=== PATIENT | female | born 1935 | race Caucasian/White ===

== ENCOUNTER 2017-07-28 08:08 | Emergency (ER) | payer MEDICARE, OTHER ==
--- NOTE | 2017-07-28 08:31 | PHYS DOC ---
Past History Past Medical History: Hypertension Past Surgical History: Hip Replacement Alcohol Use: None Drug Use: None Adult General Chief Complaint Chief Complaint: HIP PAIN HPI HPI Patient is a 82 year old female who presents with right hip pain. The patient reports onset of pain 3 days ago, increasingly painful with weightbearing & ambulation. She denies any trauma or falls. Denies fevers/chills, erythema, warmth, swelling. Denies numbness or weakness or edema. States blood pressure has been elevated due to pain. She has been taking medications as prescribed, denies headache, chest pain, shortness of breath, extremity numbness/weakness. History of right total hip arthroplasty 7 years ago. She lives at home. She doesn't take narcotic pain medications because they make her "crazy," even after her hip surgery she states she didn't take any pain medications. Review of Systems Review of Systems Constitutional: Denies fever or chills Eyes: Denies change in visual acuity HENT: Denies nasal congestion or sore throat Respiratory: Denies cough or shortness of breath Cardiovascular: Denies chest pain or edema GI: Denies abdominal pain, nausea, vomiting, or diarrhea : Denies dysuria or hematuria Musculoskeletal: Reports hip pain Integument: Denies rash or skin lesions Neurologic: Denies headache, focal weakness or sensory changes All other systems were reviewed and found to be within normal limits, except as documented in this note. Current Medications Current Medications Current Medications Medications (Trade) Dose Ordered Sig/Janny Start Time Stop Time Status Last Admin Dose Admin Acetaminophen (Tylenol) 1,000 mg 1X ONCE 07/28/17 08:45 07/28/17 08:46 Allergies Allergies Allergies Coded Allergies Type Severity Reaction Last Updated Verified Opioids-Meperidine and Related Allergy Intermediate 07/27/16 Yes morphine Allergy Intermediate 07/27/16 Yes Physical Exam Physical Exam Constitutional: Well developed, well nourished, no acute distress, non-toxic appearance. HENT: Normocephalic, atraumatic, bilateral external ears normal, oropharynx moist, nose normal. Eyes: PERRLA, EOMI, conjunctiva normal, no discharge. Neck: supple, no stridor. Cardiovascular: RRR, no murmurs, no edema. Lungs & Thorax: LCTAB, no wheezing, no respiratory distress. Abdomen: soft, nontender, nondistended. Skin: Warm, dry, no erythema, no rash. Back: No tenderness. Extremities: right hip no swelling or deformity, tenderness posteriorly & anteriorly over proximal femur, able to flex/extend at hip & internally/ externally rotate, all with minimal pain, no knee or ankle tenderness, dp/pt 2+ , sensation intact to foot. Neurologic: Alert and oriented X 3, no focal deficits noted. Psychologic: Affect normal, judgement normal, mood normal. EKG EKG [] Radiology/Procedures Radiology/Procedures PROCEDURE: HIP RIGHT 2V WITH PELVIS Pelvis with right hip, 3 views, 07/28/2017: History: Hip pain A right total hip prosthesis is in place. There is no radiographic evidence of loosening or infection. No fracture or dislocation is evident. There are mild degenerative changes at the left hip joint and at the symphysis pubis, with moderate degenerative change in the lower lumbar spine. IMPRESSION: 1. A right hip prosthesis is in place. 2. No acute bony abnormality is detected. DICTATED AND SIGNED BY: DELMI WOLFF MD DATE: 07/28/17 0837 PROCEDURE: CT PELVIS WO CONTRAST CT of the pelvis without contrast, 07/28/2017: History: Hip pain Noncontrast scans were obtained as requested, with multiplanar reconstructions produced. A right total hip prosthesis is in place with associated artifacts degrading image quality in that region. The inferior aspect of the prosthesis was not completely included on this study. No fracture or destructive bony lesion is seen. There is moderate degenerative change at the left hip joint with joint space narrowing and marginal spurring. There are moderate degenerative changes in the lower lumbar spine with a mild anterolisthesis at L4-5 and a minimal anterolisthesis at L3-4 due to facet joint arthropathy. The periarticular soft tissues are unremarkable. Minimal sigmoid diverticulosis is noted. There are scattered pelvic calcifications which appear to be vascular. IMPRESSION: 1. Chronic findings as described above. 2. No acute pelvic abnormality is detected. PQRS Compliance Statement: One or more of the following individualized dose reduction techniques were utilized for this examination: 1. Automated exposure control 2. Adjustment of the mA and/or kV according to patient size 3. Use of iterative reconstruction technique DICTATED AND SIGNED BY: DELMI WOLFF MD DATE: 07/28/17 0944 [] Course & Med Decision Making Course & Med Decision Making Pertinent Labs and Imaging studies reviewed. (See chart for details) The patient presents with atraumatic hip pain. Neurovascularly intact without obvious deformity. She doesn't like taking any pain medication but is obviously in pain. Gave tylenol here. X-ray & CT negative for acute abnormality. She is not able to stand or walk independently, did not feel safe going home. Discussed with Dr. Laws here at [facility] & she recommends transfer to [facility] for orthopedic surgery/pain management/rehab. The patient agrees with plan of care. Discussed with Dr. Miller who agrees to accept transfer to [facility]. Will apply lidoderm patch now for pain control. The patient is to be transferred by EMS, & is in stable condition. [] Dragon Disclaimer Dragon Disclaimer This electronic medical record was generated, in whole or in part, using a voice recognition dictation system. Departure Departure: Impression: Primary Impression: Hip pain Disposition: 05 XFER OTHER Condition: STABLE Referrals: BETHEL MCCOLLUM MD (PCP) SINA SHARMA MD Jul 28, 2017 08:31
--- NOTE | 2017-07-28 08:41 | RAD ---
Pelvis with right hip, 3 views, 07/28/2017: History: Hip pain A right total hip prosthesis is in place. There is no radiographic evidence of loosening or infection. No fracture or dislocation is evident. There are mild degenerative changes at the left hip joint and at the symphysis pubis, with moderate degenerative change in the lower lumbar spine. IMPRESSION: 1. A right hip prosthesis is in place. 2. No acute bony abnormality is detected.
[2017-07-28] MEDS ORDERED: ACETAMINOPHEN 500 MG TABLET PO ONE (08:45)
--- NOTE | 2017-07-28 09:54 | RAD ---
CT of the pelvis without contrast, 07/28/2017: History: Hip pain Noncontrast scans were obtained as requested, with multiplanar reconstructions produced. A right total hip prosthesis is in place with associated artifacts degrading image quality in that region. The inferior aspect of the prosthesis was not completely included on this study. No fracture or destructive bony lesion is seen. There is moderate degenerative change at the left hip joint with joint space narrowing and marginal spurring. There are moderate degenerative changes in the lower lumbar spine with a mild anterolisthesis at L4-5 and a minimal anterolisthesis at L3-4 due to facet joint arthropathy. The periarticular soft tissues are unremarkable. Minimal sigmoid diverticulosis is noted. There are scattered pelvic calcifications which appear to be vascular. IMPRESSION: 1. Chronic findings as described above. 2. No acute pelvic abnormality is detected. PQRS Compliance Statement: One or more of the following individualized dose reduction techniques were utilized for this examination: 1. Automated exposure control 2. Adjustment of the mA and/or kV according to patient size 3. Use of iterative reconstruction technique
[2017-07-28] MEDS ORDERED: LIDOCAINE (700MG/PATCH) PATCH. TD ONE (10:45)
[2017-07-28 12:13] VITALS: BP 168/71
== END 2017-07-28 13:00 | disposition short-term general hospital (02) ==
LOC: ER 08:08
DX: M25.551 Pain in right hip (principal); I10 Essential (primary) hypertension; Z88.5 Allergy status to narcotic agent; Z96.641 Presence of right artificial hip joint
CPT/HCPCS: 72192; 73502; 99285

== ENCOUNTER 2019-12-29 03:25 | Observation (INO) | payer MEDICARE, OTHER ==
[~2019-12-29] VITALS: Ht 160 cm; Wt 71.5 kg
--- NOTE | 2019-12-29 04:00 | PHYS DOC ---
Past History Past Medical History: Hypertension Past Surgical History: Hip Replacement Alcohol Use: None Drug Use: None General Adult EDM: Chief Complaint: DIZZY/LIGHT HEADED HPI: HPI: 84-year-old female presents via EMS with dizziness and shortness of breath. The patient started feeling dizzy around 10 PM. She went to bed. She woke up around 130 to go to the restroom and was more dizzy. She used her walker to go to the restroom and back to her bed. After she laid down, she continued to feel dizzy and just could not stand it anymore. She was also having some chills and felt like she was a bit short of breath. She decided to call 911 and come to the hospital. The patient was feeling well prior to this all day. She does not use oxygen at home. Her medical history is significant for joint replacement and hypertension. She denies fevers but did have chills today. Review of Systems: Review of Systems: Constitutional: Chills Eyes: Denies change in visual acuity HENT: Denies nasal congestion or sore throat Respiratory: shortness of breath Cardiovascular: Denies chest pain or edema GI: Denies abdominal pain, nausea, vomiting, bloody stools or diarrhea : Denies dysuria Musculoskeletal: Denies back pain or joint pain Integument: Denies rash Neurologic: Dizziness. Denies headache, focal weakness or sensory changes Endocrine: Denies polyuria or polydipsia Lymphatic: Denies swollen glands Psychiatric: Denies depression or anxiety Heart Score: Risk Factors: Risk Factors: DM, Current or recent (<one month) smoker, HTN, HLP, family history of CAD, obesity. Risk Scores: Score 0 - 3: 2.5% MACE over next 6 weeks - Discharge Home Score 4 - 6: 20.3% MACE over next 6 weeks - Admit for Clinical Observation Score 7 - 10: 72.7% MACE over next 6 weeks - Early Invasive Strategies Allergies: Allergies: Allergies Coded Allergies Type Severity Reaction Last Updated Verified Opioids-Meperidine and Related Allergy Intermediate 07/27/16 Yes morphine Allergy Intermediate 07/27/16 Yes Physical Exam: PE: Constitutional: Well developed, well nourished, no acute distress, non-toxic appearance. [] HENT: Normocephalic, atraumatic, bilateral external ears normal, oropharynx moist, no oral exudates, nose normal. [] Eyes: PERRLA, EOMI, conjunctiva normal, no discharge. [] Neck: Normal range of motion, no tenderness, supple, no stridor. [] Cardiovascular: Heart rate regular rhythm, no murmur [] Lungs & Thorax: Bilateral breath sounds clear to auscultation [] Abdomen: Bowel sounds normal, soft, no tenderness, no masses, no pulsatile masses. [] Skin: Warm, dry, no erythema, no rash. [] Back: No tenderness, no CVA tenderness. [] Extremities: No tenderness, no cyanosis, no clubbing, ROM intact, no edema. [] Neurologic: Alert and oriented X 3, normal motor function, normal sensory function, no focal deficits noted. [] Psychologic: Affect normal, judgement normal, mood normal. [] EKG: EKG: Sinus rhythm, rate 73, leftward axis, no ST elevations or depressions. [] Radiology/Procedures: Radiology/Procedures: [] Impressions: EXAM: CHEST AP ONLY INDICATION: Reason: SOB / Spl. Instructions: / History: . TECHNIQUE: Single view COMPARISON: 07/27/2016 chest x-ray FINDINGS: The heart size is normal. The great vessels appear unremarkable. There is no hilar or mediastinal mass. The lungs are clear. There is no pleural effusion or pneumothorax. Bilateral glenohumeral degenerative changes are present. No acute or aggressive osseous lesion is seen. IMPRESSION: No active cardiopulmonary disease. Electronically signed by: Latonia Negro MD (12/29/2019 4:25 AM) [facility] [place]CTATED AND SIGNED BY: LATONIA NEGRO MD DATE: 12/29/19 0425 CC: DELMY BAGLEY DO; BETHEL MCCOLLUM MD ~ Course & Med Decision Making: Course & Med Decision Making Pertinent Labs and Imaging studies reviewed. (See chart for details) The patient's labs are unremarkable. Her urinalysis is negative for infection. I have given her a liter normal saline, 25 mg of Benadryl, 25 mg of meclizine, and 4 mg of Zofran for dizziness. The patient was able to ambulate to the restroom, but states that she still feels very dizzy and unsteady. I do not believe she can safely go home. I have discussed the patient with Dr. Francis and he has accepted her for admission. [] Dragon Disclaimer: Dragon Disclaimer: This electronic medical record was generated, in whole or in part, using a voice recognition dictation system. Departure Departure: Impression: Primary Impression: Dizziness Disposition: ADMITTED INPATIENT Admitting Physician: Saira Francis Condition: STABLE Referrals: BETHEL MCCOLLUM MD (PCP) Justification of Admission: Justification of Admission: Justification of Admission Dx: Comment: Comments: dizziness DELMY BAGLEY DO Dec 29, 2019 04:00
[2019-12-29 04:24] LABS: BASO # 0.1 x10^3/uL (0.0-0.2); BASO % 1 % (0-3); EOS # 0.2 x10^3/uL (0.0-0.7); EOS % 4 % (0-3); HEMATOCRIT 38.7 % (36.0-47.0); HEMOGLOBIN 12.9 g/dL (12.0-15.5); LYMPH # 1.4 x10^3/uL (1.0-4.8); LYMPH % 22 % (24-48); MEAN CORPUSCULAR HEMOGLOBIN 33 pg (25-35); MEAN CORPUSCULAR HGB CONC 33 g/dL (31-37); MEAN CORPUSCULAR VOLUME 100 fL (79-100); MONO # 0.9 x10^3/uL (0.0-1.1); MONO % 14 % (0-9); NEUT # 3.8 x10^3uL (1.8-7.7); NEUT % 60 % (31-73); PLATELET COUNT 201 x10^3/uL (140-400); RED BLOOD COUNT 3.88 x10^6/uL (3.50-5.40); RED CELL DISTRIBUTION WIDTH 13.3 % (11.5-14.5); WHITE BLOOD COUNT 6.4 x10^3/uL (4.0-11.0)
--- NOTE | 2019-12-29 04:28 | RAD ---
EXAM: CHEST AP ONLY INDICATION: Reason: SOB / Spl. Instructions: / History: . TECHNIQUE: Single view COMPARISON: 07/27/2016 chest x-ray FINDINGS: The heart size is normal. The great vessels appear unremarkable. There is no hilar or mediastinal mass. The lungs are clear. There is no pleural effusion or pneumothorax. Bilateral glenohumeral degenerative changes are present. No acute or aggressive osseous lesion is seen. IMPRESSION: No active cardiopulmonary disease. Electronically signed by: Norma Negro MD (12/29/2019 4:25 AM) [facility] [place]
[2019-12-29 04:31] LABS: BACTERIA,URINE FEW /HPF (0-FEW); BILIRUBIN,URINE NEG (NEG); CLARITY,URINE HAZY; COLOR,URINE YELLOW; GLUCOSE,URINE NEG (NEG); NITRITE,URINE NEG (NEG); RBC,URINE 0 /HPF (0-2); SQUAMOUS EPITHELIAL CELL,UR FEW /LPF; UROBILINOGEN,URINE 0.2 mg/dL (0.2 mg/dL); WBC,URINE 20-40 /HPF (0-4)
[2019-12-29 04:33] LABS: CALCIUM 8.6 mg/dL (8.5-10.1); CREATININE 1.2 mg/dL (0.6-1.0)
[2019-12-29 04:45] LABS: ALBUMIN 3.3 g/dL (3.4-5.0); TOTAL BILIRUBIN 0.6 mg/dL (0.2-1.0); TOTAL PROTEIN 6.6 g/dL (6.4-8.2)
[2019-12-29] MEDS ORDERED: IV NORMAL SALINE 1,000ML 1,000 ML IV ONE (05:00)
[2019-12-29] MEDS ORDERED: MECLIZINE 12.5 MG TABLET. PO ONE (05:00)
[2019-12-29] MEDS ORDERED: diphenhydrAMINE 50 MG/ML VIAL IVP ONE (05:00)
[2019-12-29] MEDS ORDERED: ONDANSETRON PF 4 MG/2 ML VIAL. IVP ONE (05:00)
--- NOTE | 2019-12-29 06:11 | RAD ---
EXAM: CT Head without IV contrast INDICATION: Reason: dizziness / Spl. Instructions: / History: TECHNIQUE: Multi-detector row CT images were obtained of the head without the use of IV contrast. All CT scans performed at this facility utilize dose optimization techniques as appropriate to the exam, including the following: Automated exposure control and adjustment of the mA and/or KV according to patient size (this includes techniques or standardized protocols for targeted exams where dose is indication/reason for exam). COMPARISON: None FINDINGS: BRAIN PARENCHYMA: No evidence of acute intraparenchymal hemorrhage or infarct. No abnormal parenchymal density or mass. VENTRICLES & EXTRA-AXIAL SPACES: Ventricles are within normal limits. Basilar cisterns are patent. No pathologic extra-axial fluid collection or mass. ORBITS: Orbital contents are unremarkable. SINUSES: Visualized paranasal sinuses and mastoid air cells are clear. OSSEOUS & SOFT TISSUES: Calvarium and skull base are intact. IMPRESSION: No acute intracranial pathology. Electronically signed by: Norma Negro MD (12/29/2019 6:09 AM) [facility] [place]
--- NOTE | 2019-12-29 06:22 | EKG ---
[address] [address] Test Date: 2019-12-29 Test Time: 04:46:18 Pat Name: NASIR WYMAN Department: Room: Gender: F Paper Spooler: : [id number] Requested By: DELMY BAGLEY Order Number: [id number] Reading MD: Measurements Intervals Seffner Rate: 73 P: 51 VA: 186 QRS: -12 QRSD: 80 T: 44 QT: 362 QTc: 402 Interpretive Statements SINUS RHYTHM LEFTWARD AXIS OTHERWISE NORMAL ECG RI6.02 No previous ECG available for comparison
[2019-12-29 07:45] VITALS: BP 163/79
--- NOTE | 2019-12-29 08:40 | HP ---
ADMIT DATE: 12/29/2019 ATTENDING PHYSICIAN: Dr. Holliday. CHIEF COMPLAINT: Dizziness. HISTORY OF PRESENT ILLNESS: The patient is a very active, pleasant 84-year-old female who lives very independently. She has new onset of dizziness last night around 10:00 p.m., she got up to go to the bathroom, she became nauseated. She was a little anxious, got short of breath. She is not any better. She could not stand it anymore. She came in for evaluation, 911 was called. The patient was feeling well up to this. She does not use oxygen at home. In the ED, the obligatory CT of the head demonstrated no acute changes identified. There are no strokes or evidence of bleeds. Chest x-ray was entirely clear. The patient has not had recent exposure to COVID or fevers or chills. She has symptoms consistent with acute vertigo. PAST MEDICAL HISTORY: Significant for orthopedic surgery on the knee. She has essential hypertension. She takes metoprolol 25 mg p.o. daily. ALLERGIES: SHE HAS ALLERGIES TO MORPHINE AND MEPERIDINE, exact reaction is unclear. SOCIAL HISTORY: She is a nonsmoker, nondrinker. She does not have any children. She has stepchildren. She is single and lives independently. 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 FAMILY HISTORY: Mom of Alzheimer's disease at age 95. Father of heart disease at age 76. REVIEW OF SYSTEMS: Significant for the dizziness. No fevers, chills, sweats, palpitations, cough, congestion, diarrhea. All other systems reviewed and turned to be negative. PHYSICAL EXAMINATION: GENERAL: When I saw her, this is a pleasant, alert female. INITIAL VITAL SIGNS: Showed a blood pressure of 141/85, pulse is 72 and regular, temperature 98.5 degrees Fahrenheit, oxygen saturation 96% on room air. HEENT: The head is without trauma. The pupils are reactive. The sclerae are nonicteric. There is no evidence of nystagmus. NECK: Supple, no bruits identified. LUNGS: Otherwise clear. CARDIOVASCULAR: Showed regular heart tones. No obvious gallops. Peripheral pulses are palpable and full. ABDOMEN: Soft, scaphoid, nontender, no organomegaly. Bowel sounds are hypoactive. EXTREMITIES: Showed no cyanosis or edema. NEUROLOGIC: Focally intact. Speech is fluent. PERTINENT LABORATORY AND X-RAY STUDIES: CT of the head and chest x-ray as noted. Hemoglobin is maintained at 12.9 g/dL with a white count of 6400. Chemistry panel showed normal sodium 134 mEq per liter. Creatinine is 1.2 mg/dL, nonfasting blood sugar 106. Transaminases are normal and the cardiac enzymes are negative for coronary ischemia. ASSESSMENT: 1. An 84-year-old female with acute vertigo. 2. Essential hypertension. 3. History of degenerative arthritis. PLAN: 1. Admit to the inpatient unit. 2. Strict bed rest. 3. Meclizine scheduled. 4. Small dose diazepam scheduled. 5. Empiric corticosteroids. 6. Continue home meds. 7. Diet as tolerated. SEDA HOLLIDAY MD DR: TY/eda JOB#: [id number] / [id number]
[2019-12-29] MEDS ORDERED: predniSONE 20 MG TABLET PO ONE (09:00)
[2019-12-29] MEDS ORDERED: LOSA25TA11 PO (09:42)
[2019-12-29] MEDS ORDERED: METO-239 PO (09:42)
--- NOTE | 2019-12-29 09:57 | NUR ---
NURSING NOTE ADMIT PT ADMIT TO ROOM 111 VIA EMS ACCOMPANIED BY EMS PERSONNEL WITH DX OF DIZZINESS. PT STATES STARTED LAST NIGHT AND WASNT GETTING BETTER SO DECIDED TO COME TO ER. PT STATES SHE HAS HEADACHE AND DIZZINESS. PT REPORTS ONLY MEDICAL HX OF RIGHT HIP REPLACEMENT 2010, LEFT KNEE LAP 1999, HT. TAKES ONLY LOSARTAN AND METOPROLOL. LIVES HOME ALONE. WILL CONTINUE TO MONITOR. ELIZA HOFFMANN.
[2019-12-29 10:21] VITALS: BP 148/68
[2019-12-29] MEDS: diazePAM 2 MG TABLET. PO SCH ×3 (10:23→20:24)
[2019-12-29] MEDS: MECLIZINE 12.5 MG TABLET. PO SCH ×3 (10:23→20:24)
[2019-12-29] MEDS: METOPROLOL SUCC 24HR ER 50 MG TAB.ER.24H. PO SCH (10:23)
[2019-12-29 15:09] VITALS: BP 122/75
[2019-12-29] MEDS ORDERED: ACETAMINOPHEN 500 MG TABLET PO PRN (16:30)
[2019-12-29 20:22] VITALS: BP 131/68
--- NOTE | 2019-12-29 20:55 | NUR ---
Pt is calm and cooperative during assessment. Pt had complaints of headache earlier in the day and received Tylenol 1,000mg PRN as indicated. Pt now says that the headache is gone and doesn't have any complaints of dizziness or nausea. Pt tolerated HS meds well and asked for a snack before bed. Pt resting comfortably in bed w/ call light in reach. Will continue to monitor.
[2019-12-30 00:34] VITALS: BP 186/73
[2019-12-30 06:18] VITALS: BP 150/67
[2019-12-30 08:19] VITALS: BP 150/67
[2019-12-30] MEDS: MECLIZINE 12.5 MG TABLET. PO SCH (08:19)
[2019-12-30] MEDS: diazePAM 2 MG TABLET. PO SCH (08:19)
[2019-12-30] MEDS: METOPROLOL SUCC 24HR ER 50 MG TAB.ER.24H. PO SCH (08:19)
--- NOTE | 2019-12-30 10:36 | NUR ---
NSG NOTE; DISCHARGE VERBAL AND WRITTEN DISCHARGE INSTRUCTIONS GIVEN TO PT WITH VERBAL UNDERSTANDING' RX X2 GIVEN TO PT DISCHARGE TO HOME AT 1030 VIA AMB WITH WALKER ACCOMP BY SISTER WHO PICKED HER UP
--- NOTE | 2019-12-30 10:38 | DS ---
DATE OF DISCHARGE: 12/30/2019 ATTENDING PHYSICIAN: Dr. Holliday. FINAL DISCHARGE DIAGNOSES: 1. Acute vertigo, resolved. 2. Essential hypertension. 3. Nausea, resolved. HISTORY AND PHYSICAL: This is a very pleasant active 84-year-old female with acute vertigo onset. Prior to coming in, she had a negative workup in the ED. CT of the head was unremarkable. She was admitted for further treatment and evaluation. PHYSICAL EXAMINATION: Please see the dictated note. PERTINENT LABORATORY AND X-RAY STUDIES: The obligatory CT of the head demonstrated no acute strokes or bleeds. No acute intracranial pathology. Chest x-ray was clear. Hemoglobin maintained at 12.9 g/dL with white count of 6400. Electrolytes were all within normal range. Creatinine is 1.2 mg percent, nonfasting blood sugar 106. Troponin was nonischemic. COURSE IN THE HOSPITAL: The patient was admitted. She was placed on bed rest. We treated her with meclizine 25 mg t.i.d., Valium 2 mg t.i.d. and a short course of prednisone 60 mg daily. She did well. Nausea resolved, dizziness resolved. She was up and about, eating and she was ready for discharge. I recommended 4 more days of meclizine and Valium to complete the course. Strong encouragement to avoid vigorous activity. She will continue her metoprolol and losartan. She will follow up with her primary care physician. The patient was then discharged from our hospital in stable condition with explicit instructions and followup care. SEDA HOLLIDAY MD DR: TY/eda JOB#: [id number] / [id number]
== END 2019-12-30 10:30 | disposition home or self-care (01) ==
LOC: ER 03:25 → INTOOBSV 05:50 → 1 SOUTH 05:50
PROVIDERS: ADMIT Internal Medicine; ATTEND Internal Medicine
DX: I10 Essential (primary) hypertension (principal); R42 Dizziness and giddiness; M19.90 Unspecified osteoarthritis, unspecified site; Z96.659 Presence of unspecified artificial knee joint; Z79.899 Other long term (current) drug therapy
CPT/HCPCS: 36415; 70450; 71045; 80053; 81001; 83880; 84484; 85025; 87086; 93005; 96361; 96374; 96375; 99285; G0378; J1200; J2405; J7030; J7512; J8597; G0379